=== PATIENT | female | born 1985 | race Caucasian/White ===

== ENCOUNTER 2018-04-09 12:41 | Emergency (ER) | payer MEDICAID ==
[~2018-04-09] VITALS: Ht 157.5 cm; Wt 95.5 kg
[2018-04-09 12:53] VITALS: Ht 157.5 cm; Wt 95.5 kg
--- NOTE | 2018-04-09 15:23 | ERD ---
ER Documentation Chief Complaint Chief Complaint Referred by Dr. Hood due to absent FHT on UZ in clinic. 11.2 wks preg HPI 32-year-old female, at 11.2 weeks by LMP 01/20/18, presents to the emergency department, referred by [facility] for ultrasound. The patient had a negative heart tones during an ultrasound today. The patient denies any abdominal pain, no vaginal bleeding, no vaginal discharge, no urinary symptoms. ROS All systems reviewed and are negative except as per history of present illness. Allergies Allergies: Coded Allergies: No Known Drug Allergy (Verified Allergy, Unknown, 02/24/07) PMhx/Soc Medical and Surgical Hx: pt denies Medical Hx, pt denies Surgical Hx History of Surgery: No Anesthesia Reaction: No Hx Neurological Disorder: No Hx Respiratory Disorders: No Hx Cardiac Disorders: No Hx Psychiatric Problems: No Hx Miscellaneous Medical Probl: No Hx Alcohol Use: No Hx Substance Use: No Hx Tobacco Use: No Smoking Status: Never smoker Physical Exam Vitals Vital Signs Date Temp Pulse Resp B/P (MAP) Pulse Ox O2 O2 Flow FiO2 Time Delivery Rate 04/09/18 98.0 87 20 108/71 99 12:53 (83) Physical Exam Const: No acute distress Head: Atraumatic Eyes: Normal Conjunctiva ENT: Normal External Ears, Nose and Mouth. Neck: Full range of motion. No meningismus. Resp: Clear to auscultation bilaterally Cardio: Regular rate and rhythm, no murmurs Abd: Soft, non tender, non distended. Normal bowel sounds Skin: No petechiae or rashes Back: No midline or flank tenderness Ext: No cyanosis, or edema Neur: Awake and alert Psych: Normal Mood and Affect Results 24 hrs Laboratory Tests Test 04/09/18 15:30 04/09/18 15:32 Bedside Urine pH (LAB) 5.5 Bedside Urine Protein (LAB) Negative Bedside Urine Glucose (UA) Negative Bedside Urine Ketones (LAB) 2+ Bedside Urine Blood 2+ Bedside Urine Nitrite (LAB) Negative Bedside Urine Leukocyte Esterase (L Trace POC Beta HCG, Qualitative POSITIVE [address] [address] Radiology Main Line: [phone] DIAGNOSTIC IMAGING REPORT Patient: LILIBETH HWANG : 1985 Age: 32 Sex: F MR #: [id number] DOS: 04/09/18 1520 Ordering MD: RUDY SIDHU MD Location: [facility] Room/Bed: PROCEDURE: OB Ultrasound. CLINICAL INDICATION: Positive test. No heart tones. TECHNIQUE: Ultrasound of the pelvis was performed with transabdominal sonography in the axial and sagittal planes. COMPARISON: No prior study is available for comparison. FINDINGS: There is a single intrauterine gestational sac. Yolk sac is present. pole is visualized. There is no heart motion. [place]-rump length is 2.24 cm. Mean sac diameter is 5.08 cm. Gestational age by ultrasound dates is 10 weeks 1 day. The ovaries are not visualized. There is no other pelvic mass or free fluid. IMPRESSION: 1. demise at 10 weeks 1 day gestational age. RPTAT: QQ .Buzz Woods MD, MD Date Time Electronically viewed and signed by .Buzz Woods MD, MD on 04/09/2018 16:31 .R/ CC: RUDY SIDHU MD [phone] Procedures/MDM Vital signs stable, Physical exam unremarkable. Differential diagnosis include but not limited to: UTI, threatening , incomplete versus complete , demise. Physical examination and clinical presentation most likely consistent with embryonic demise at 10 weeks. During the ED course the patient remained hemodynamically stable and asymptomatic. No active bleeding, therefore, the patient needs a follow-up with her primary doctor for a second/third trimester clinic procedure. Results and clinical impression discussed with patient who agrees with management. The patient is stable to be treated outpatient and will be discharged home with close monitoring and follow-up tomorrow with her primary physician. The patient was instructed regarding the outcomes and the potential complications like severe bleeding. If the patient presents severe bleeding or pain, she was instructed to return to the hospital immediately. Disclaimer: Inadvertent spelling and grammatical errors are likely due to EHR/dictation software use and do not reflect on the overall quality of patient care. Also, please note that the electronic time recorded on this note does not necessarily reflect the actual time of the patient encounter. Departure Diagnosis: Primary Impression: Embryonic demise Additional Impression: 10 weeks gestation of Condition: Stable Additional Instructions: Thank you very much for allowing us to participate in your care. Your health and safety is our top priority at [facility]. Call your primary care doctor TOMORROW for an appointment during the next 2-4 days and bring all the information and medications prescribed. Have prescriptions filled and follow precisely the directions on the label. If the symptoms get worse and your provider is unavailable, return to the Emergency Department immediately. RUDY SIDHU MD Apr 09, 2018 15:22
[2018-04-09 16:49] VITALS: BP 103/78; PULSE 82; RESP 20
== END 2018-04-09 16:51 | disposition home or self-care (01) ==
LOC: FTE 12:41
DX: O36.8310 Maternal care for abnormalities of the fetal heart rate or rhythm, first trimester, not applicable or unspecified (principal); Z3A.11 11 weeks gestation of pregnancy
CPT/HCPCS: 76801; 81003; 81025; Z7502